=== PATIENT | male | born 1995 | race Caucasian/White ===

== ENCOUNTER 2021-01-13 09:59 | Emergency (ER) | payer BC, SELFPAY ==
[2021-01-13 11:14] VITALS: BP 138/98; PULSE 88; RESP 18; O2SAT 98; BMI 23.7
[2021-01-13] MEDS: Ondansetron ODT 4 MG TAB.RAPDIS TRANSLINGU (11:18)
[2021-01-13 11:44] LABS: MANUAL DIFF FLAG NO
[2021-01-13 11:46] LABS: Basophils Percent Auto 0.3 % (0-2); Hematocrit 46.7 % (42.0-52.0); Hemoglobin 16.6 g/dl (14.0-18.0); Imm Gran Abs Auto 0.04 X10*3/uL (0.00-0.03); Imm Gran Pct Auto 0.3 % (0.0-0.4); Lymphocytes Absolute Auto 0.7 X10*3/uL (1.2-4.9); Lymphocytes Percent Auto 5.8 % (20-40); Mean Corpuscular HGB Conc 35.5 g/dl (31.0-36.0); Mean Corpuscular Volume 87.1 fL (80.0-98.0); Mean Platelet Volume 9.6 fL (9.4-12.4); Monocytes Absolute Auto 0.7 X10*3/uL (0.1-1.2); Monocytes Percent Auto 5.8 % (2-11); Neutrophils Absolute Auto 10.9 x10*3/uL (2.0-8.3); Neutrophils Percent Auto 87.8 % (45-73); Platelet Count 266 X10*3/uL (160-400); Red Blood Count 5.36 X10*6/uL (4.60-5.80); Red Cell Distribution Width 12.5 % (11.0-16.0); White Blood Count 12.4 X10*3/uL (4.8-10.8)
[2021-01-13 12:03] LABS: Anion Gap 21 (12-20); Blood Urea Nitrogen 12 mg/dL (9-16); Calcium 10.1 mg/dL (8.4-10.2); Carbon Dioxide 21 mmol/L (22-29); Chloride 104 mmol/L (96-108); Creatinine Clr Calc Pharmacy 101.8; Estimated Glomerular Filt Rate > 60; Glucose Random 87 mg/dL (60-115); Potassium 4.6 mmol/L (3.3-5.1); Sodium 141 mmol/L (135-145)
--- NOTE | 2021-01-13 12:44 | ED.NAVMDI ---
HPI - Nausea/Vomiting/Diarrhea General Chief complaint: Nausea/Vomiting/Diarrhea Stated complaint: dehydration vomiting Time Seen by Provider: 01/13/21 12:44 Source: patient Mode of arrival: ambulatory Limitations: no limitations History of Present Illness HPI Narrative: This is a 25-year-old male no known medical history presenting to the emergency department with complaints of nausea, vomiting and abdominal discomfort secondary to the vomiting X1 day. Patient tells me that he went on a drinking binge last night, he is unsure how much he drinks however he states that he drink a lot of blood light, and anuradha bombs. He tells me that he does not usually drink however he decided to go out after work yesterday. He tells me he is dehydrated and he has not been able to keep anything down. He tells me he is vomiting bile, and has not sought vomiting since he woke up this morning, unsure of how many times he has vomited. He denies chest pain, shortness of breath, fevers, chills, diarrhea, constipation, weakness, headache, vision changes. MD elicited complaint: nausea, vomiting and abdominal pain (diffuse) Onset (ago): day(s) (1) Description of vomiting: bilious Associated nausea: Yes Associated abdominal pain: Yes Location of pain: diffuse Pain consistency: constant Severity: moderate Quality: cramping Exacerbating factors: none Relieving factors: none Associated symptoms: denies other symptoms Related Data Previous Rx's Medication Instructions Recorded ondansetron 4 mg disintegrating 4 mg PO ONCE PRN #10 tab 01/13/21 tablet Allergies Allergy/AdvReac Type Severity Reaction Status Date / Time No Known Allergies Allergy Unverified 10/29/19 17:12 Review of Systems Review of Systems: Constitutional : No Weight loss, No Fever, No Chills, No Fatigue, No Malaise ENT/Mouth : No sore throat, No Rhinorrhea Eyes: No Eye Pain, No Swelling, No Redness Cardiovascular : No Chest Pain, No SOB, No Dyspnea on Exertion, No Orthopnea, No Edema, No Palpitations Respiratory : No Cough, No Sputum, No Wheezing Gastrointestinal : + Nausea, + Vomiting, No Diarrhea, No Constipation, + abdominal Pain, No Hematochezia, No Melena Genitourinary : No Dysuria, No Urinary Frequency, No Hematuria, Musculoskeletal : No joint pain, No Myalgias, No Joint Swelling Skin : No Skin Lesions, No rash Neuro : No Weakness, No Numbness, No Dizziness, No Headache Psych : No Anxiety/Panic, No Depression All other systems reviewed and are negative Gastrointestinal: Gastrointestinal: Reports nausea PMFSH Past Medical History Attestation statement: The following information was validated with the patient. Source: old records reviewed and nursing notes reviewed Social History Social History Alcohol intake: current Alcohol type: beer Patient Tobacco Use Status: Current someday Tobacco user Use of substances other than those prescribed or required for medical reasons: No Advance Directives: No Advance Directives Information Provided: No Physical Exam Vital Signs: Vital Signs: Last Vital Signs Pulse 88 01/13/21 11:14 Resp 18 01/13/21 11:14 BP 138/98 H 01/13/21 11:14 Pulse Ox 98 01/13/21 11:14 BMI result Body Mass Index 23.7 VSS Appearance: Alert.? Oriented X3.? No acute distress.? Head: Normocephalic, atraumatic, no step-offs or deformities Eyes: Pupils equal, round and reactive to light.? ENT: Pharynx normal.?+ Dry mucus membranes Neck: Normal inspection.? Neck supple.? CVS: Normal heart rate and rhythm.? Pulses normal.? Respiratory: No respiratory distress.? Breath sounds normal.? Abdomen: Soft and nontender.? Skin: Skin warm and dry.? Normal skin color.? Normal skin turgor.? Extremities: No lower extremity edema.? No calf ttp. 5/5 strength to bilateral upper and lower extremities Back: No midline tenderness, no C-spine tenderness, full range of motion, no CVA tenderness bilaterally Neuro: Oriented X 3.? No motor deficit.? No sensory deficit. Course Reevaluation(s) Reevaluation #1: Patient's laboratory studies show slight leukocytosis reactive due to vomiting, low concern for infection. No acute electrolyte abnormalities. Bilirubin is noted to be slightly elevated, likely secondary to patient's drinking. Time: 12:00 Reevaluation #2: I spoke to patient about his laboratory studies, and mention to him that his bilirubin was elevated, he tells me that is been elevated in the past, may have done imaging, so for this reason he does not feel as though imaging is necessary. I agree with him I do not feel as though imaging is necessary at this time. Patient is likely vomiting and nauseous secondary to alcohol use. He feels much better after fluids, Reglan and Zofran. He will be discharged home with p.rcaryl Zofran. Patient is safe for discharge home with PCP follow-up. Time: 14:07 MDM - Nausea/Vomiting/Diarrhea MDM Narrative Medical decision making narrative: 1250 25-year-old male no known medical history presents to the emergency department with complaints of nausea, vomiting and abdominal pain secondary to vomiting status post a night of heavy drinking last night. Patient tells me he was drinking beer, and anuradha bombs he doesent know how much he drank. Upon physical examination patient appears well, vital signs are stable. Lungs are clear. Regular rate and rhythm. Abdomen soft nontender nondistended. Patient is noted to have dry mucous membranes. No focal neuro deficits. Plan at this time is to obtain basic labs, administer fluids, Reglan, Zofran. Medical Records Attestation: I reviewed the patient's medical records. Lab Data Attestation: I reviewed the patient's lab results. Result diagrams: 01/13/21 11:39 12 11:39 Labs: Lab Results 01/13/21 01/13/21 Range/Units 11:39 11:39 WBC 12.4 H (4.8-10.8) X10*3/uL RBC 5.36 (4.60-5.80) X10*6/uL Hgb 16.6 (14.0-18.0) g/dl Hct 46.7 (42.0-52.0) % MCV 87.1 (80.0-98.0) fL MCH 31.0 (27.0-33.0) pg MCHC 35.5 (31.0-36.0) g/dl RDW 12.5 (11.0-16.0) % Plt Count 266 (160-400) X10*3/uL MPV 9.6 (9.4-12.4) fL Immature Gran % (Auto) 0.3 (0.0-0.4) % Neut % (Auto) 87.8 H (45-73) % Lymph % (Auto) 5.8 L (20-40) % [place] % (Auto) 5.8 (2-11) % Eos % (Auto) 0.0 (0-4) % Baso % (Auto) 0.3 (0-2) % Lymph # (Auto) 0.7 L (1.2-4.9) X10*3/uL [place] # (Auto) 0.7 (0.1-1.2) X10*3/uL Eos # (Auto) 0.0 (0.0-0.4) X10*3/uL Baso # (Auto) 0.0 (0.0-0.2) X10*3/uL Abs Immat Gran (auto) 0.04 H (0.00-0.03) X10*3/uL Absolute Neuts (auto) 10.9 H (2.0-8.3) x10*3/uL Absolute Nucleated RBC 0.000 (0.0-0.012) X10*3/uL Nucleated RBC % (auto) 0.0 (0.0-0.2) /100WBC Sodium 141 (135-145) mmol/L Potassium 4.6 (3.3-5.1) mmol/L Chloride 104 (96-108) mmol/L Carbon Dioxide 21 L (22-29) mmol/L Anion Gap 21 H (12-20) BUN 12 (9-16) mg/dL Creatinine 1.16 (0.5-1.4) mg/dL Estim Creat Clear Calc 101.8 Estimated GFR > 60 Random Glucose 87 (60-115) mg/dL Calcium 10.1 (8.4-10.2) mg/dL Total Bilirubin 1.6 H (0.0-1.0) mg/dL Direct Bilirubin 0.7 H (0.0-0.5) mg/dL AST 22 (5-37) U/L ALT 21 (0-40) U/L Alkaline Phosphatase 59 (39-117) U/L Total Protein 7.9 (6.5-8.0) g/dL Albumin 5.1 H (3.5-5.0) g/dL Lipase 49 (8-78) U/L Critical Care Time Critical Care Time Critical Care Time: No Discharge Plan Discharge Clinical Impression: Dehydration, Nausea & vomiting Patient Disposition: Home, Self-Care Instructions: Dehydration (ED), Acute Nausea and Vomiting (ED) Additional Instructions: Take your medications as prescribed. Drink plenty of fluids Follow-up with your primary care provider this week. Return to the emergency department with new or worsening symptoms. In case of emergency call 911 Prescriptions: New ondansetron 4 mg tablet,disintegrating 4 mg PO ONCE PRN (Reason: nausea and vomiting) Qty: 10 RF: 0 Referrals: Physician,Unknown J [Primary Care Provider] - 2 days Stand Alone Forms: Work/School Release
[2021-01-13 13:05] LABS: Alanine Aminotransferase 21 U/L (0-40); Albumin Level 5.1 g/dL (3.5-5.0); Alkaline Phosphatase 59 U/L (39-117); Aspartate Amino Transferase 22 U/L (5-37); Bilirubin Direct 0.7 mg/dL (0.0-0.5); Bilirubin Total 1.6 mg/dL (0.0-1.0); Lipase 49 U/L (8-78); Total Protein 7.9 g/dL (6.5-8.0)
[2021-01-13] MEDS: 0.9 % Sodium Chloride 1,000 ML 999 ML IV (13:27)
[2021-01-13] MEDS: diphenhydrAMINE HCL 50 MG/ML VIAL 25 MG IVPUSH (13:28)
[2021-01-13] MEDS: Metoclopramide HCl 10 MG/2 ML VIAL IVPUSH (13:28)
[2021-01-13 14:15] VITALS: BP 136/77; PULSE 69; RESP 18; TEMP 36.9; O2SAT 99
== END 2021-01-13 14:38 | disposition home or self-care (01) ==
PROVIDERS: Physician Assistant; Emergency Provider Emergency Medicine
DX: E86.0 Dehydration (principal); R11.2 Nausea with vomiting, unspecified
CPT/HCPCS: 36415; 80048; 80076; 83690; 85025; 96361; 96374; 96375; 99284; J1200; J2765

== ENCOUNTER 2022-03-21 08:29 | Outpatient (REF) | payer BC, SELFPAY ==
--- NOTE | ~2022-03-21 | XR_ITS ---
EXAMINATION: XR ABDOMEN KUB CLINICAL INDICATION: Unspecified abdominal pain. COMPARISON: None TECHNIQUE: AP view of the abdomen. FINDINGS: The bowel gas pattern is normal with no evidence of ileus or obstruction. No unusual soft tissue calcifications are noted. The bones are unremarkable. XR/XR KUB IMPRESSION: Nonobstructive bowel gas pattern.
== END 2022-03-21 08:30 | disposition home or self-care (01) ==
LOC: HO.XRAY 08:29
PROVIDERS: Visit Provider Family Medicine
DX: R10.9 Unspecified abdominal pain (principal); R11.2 Nausea with vomiting, unspecified
CPT/HCPCS: 74018

== ENCOUNTER 2022-03-27 17:41 | Emergency (ER) | payer BC, SELFPAY ==
--- NOTE | ~2022-03-27 | CT_ITS ---
EXAMINATION: CT ABDOMEN AND PELVIS WITH CONTRAST CLINICAL INFORMATION: diarrhea, abd pain COMPARISON: None. TECHNIQUE: Multidetector volumetric imaging was performed from the superior aspect of the liver through the pubic symphysis following administration of 85 mL Omnipaque 300 intravenous contrast. Sagittal and coronal reformatted images were obtained on the technologist workstation.. This CT examination was performed using dose optimization techniques as appropriate, variously including the following: *Automated exposure control *Adjustment of mA and/or kV according to patient size (this includes techniques or standardized protocols for targeted exams where dose is matched to indication/reason for exam; i.e. extremities or head) *Use of iterative reconstruction technique DLP: 443 mGy-cm FINDINGS: LUNG BASES: The visualized lung bases are unremarkable. LIVER, GALLBLADDER, AND BILIARY TREE: The liver is normal in size, shape, and attenuation. No focal hepatic lesion or biliary ductal dilatation is present. The gallbladder is unremarkable with no evidence of radiopaque gallstones, gallbladder wall thickening, or obvious pericholecystic inflammatory changes. PANCREAS: Unremarkable. SPLEEN: Unremarkable. ADRENAL GLANDS: Unremarkable. KIDNEYS AND URETERS: The kidneys are normal in size, shape, and attenuation. No hydronephrosis, hydroureter, or calculi seen. No perinephric stranding. BLADDER: Unremarkable. GASTROINTESTINAL TRACT: Fluid and air seen throughout colon to the rectum. There is also fluid seen within the small bowel loops. I do not appreciate any focal obstruction or transition point. No pericolonic or perienteric inflammatory changes. The appendix is not able to be defined and may be surgically absent although could be difficult to separate from adjacent bowel loops due to the lack of significant intra-abdominal fat. ABDOMINAL WALL: No significant hernia is appreciated. LYMPHOVASCULAR STRUCTURES: No lymphadenopathy. The aorta is unremarkable. PELVIC VISCERA: Unremarkable. OSSEOUS STRUCTURES: Unremarkable. CT/CT abdomen pelvis w IV con IMPRESSION: Fluid and air seen throughout the colon to the rectum. There is also fluid seen within the small bowel loops. I do not appreciate any focal obstruction or transition point. No pericolonic inflammatory changes. No free air or free fluid. The appendix is not able to be defined and may be surgically absent although could be difficult to separate from adjacent bowel loops due to the lack of significant intra-abdominal fat.
[2022-03-27 18:14] VITALS: BP 143/81; PULSE 84; RESP 16; TEMP 37.2; O2SAT 100; BMI 25.1
--- NOTE | 2022-03-27 18:14 | ED_ITS ---
HPI - Nausea/Vomiting/Diarrhea General Chief complaint: Nausea/Vomiting/Diarrhea <Elena Joyner CNP - Last Filed: 03/27/22 19:56> Stated complaint: vomiting <Elena Joyner CNP - Last Filed: 03/27/22 19:56> Time Seen by Provider: 03/27/22 22:19 <Elena Joyner CNP - Last Filed: 03/27/22 19:56> Source: patient <ARGENTINA Portillo - Last Filed: 03/28/22 00:32> Mode of arrival: ambulatory <ARGENTINA Portillo Last Filed: 03/28/22 00:32> Limitations: no limitations <ARGENTINA Portillo Last Filed: 03/28/22 00:32> History of Present Illness HPI Narrative: This is a 26-year-old male presenting to the emergency department with complaints of nausea, vomiting, diffuse abdominal pain, diarrhea, body aches and pains, subjective fevers and chills x1 week not improving. Patient states he feels like his whole body is aching. He denies any sick contacts. He tells me he is a frequent marijuana smoker, he also reports that he uses chewing tobacco very frequently. Denies any drug use other than marijuana. Patient tells me he used to be heavy drinker however now only drinks occasionally. Patient denies chest pain, shortness of breath, headache, vision changes, dizziness. No recent antibiotic use <ARGENTINA Portillo Last Filed: 03/28/22 00:32> Related Data Home medications: Previous Rx's Medication Instructions Recorded ondansetron 4 mg disintegrating 4 mg PO ONCE PRN nausea and 01/13/21 tablet vomiting #10 tabs omeprazole 40 mg capsule,delayed 40 mg PO DAILY 15 days #15 caps 03/20/22 release ondansetron 4 mg disintegrating 4 mg PO Q8H PRN nausea and 03/20/22 tablet vomiting 3 days #9 tabs sucralfate 1 gram tablet 1 g PO BID 5 days #10 tabs 03/20/22 diphenhydramine HCl 25 mg capsule 25 mg PO TID PRN nausea and 03/28/22 (Benadryl) vomiting #14 caps loperamide 2 mg capsule 2 mg PO Q6H PRN loose stool #30 03/28/22 (Anti-Diarrheal (loperamide)) caps metoclopramide HCl 10 mg tablet 10 mg PO Q6H PRN nausea and 03/28/22 (Reglan) vomiting #14 tabs <Elena Joyner CNP - Last Filed: 03/27/22 19:56> Allergies/Adverse reactions: Allergies Allergy/AdvReac Type Severity Reaction Status Date / Time No Known Allergies Allergy Unverified 03/20/22 09:18 <Elena Joyner CNP - Last Filed: 03/27/22 19:56> Review of Systems Review of Systems: Constitutional : No Weight loss, No Fever, No Chills, + Fatigue, + Malaise ENT/Mouth : No sore throat, No Rhinorrhea Eyes: No Eye Pain, No Swelling, No Redness Cardiovascular : No Chest Pain, No SOB, No Dyspnea on Exertion, No Orthopnea, No Edema, No Palpitations Respiratory : No Cough, No Sputum, No Wheezing Gastrointestinal : + Nausea, + Vomiting, + Diarrhea, No Constipation, + abdominal Pain, No Hematochezia, No Melena Genitourinary : No Dysuria, No Urinary Frequency, No Hematuria, Musculoskeletal : No joint pain, + Myalgias, No Joint Swelling Skin : No Skin Lesions, No rash Neuro : No Weakness, No Numbness, No Dizziness, No Headache Psych : No Anxiety/Panic, No Depression All other systems reviewed and are negative <ARGENTINA Portillo - Last Filed: 03/28/22 00:32> Yes all other systems are reviewed and are negative <ARGENTINA Portillo Last Filed: 03/28/22 00:32> FORMERLY [facility] Past Medical History Attestation statement: The following information was validated with the patient. <ARGENTINA Portillo Last Filed: 03/28/22 00:32> Source: old records reviewed and nursing notes reviewed <ARGENTINA Portillo ast Filed: 03/28/22 00:32> Social History Social History: Social History Alcohol intake: current Alcohol type: beer Patient Tobacco Use Status: Current someday Tobacco user Advance Directives: No Advance Directives Information Provided: No <Elena JoynerMELLY - Last Filed: 03/27/22 19:56> Physical Exam Vital Signs: Vital Signs: Last Vital Signs Temp 98.1 F 03/28/22 00:04 Pulse 67 03/28/22 00:04 Resp 16 03/28/22 00:04 BP 133/62 03/28/22 00:04 Pulse Ox 95 03/28/22 00:04 O2 Del Method 03/28/22 00:04 BMI result Body Mass Index 25.1 <Elena JoynerMELLY - Last Filed: 03/27/22 19:56> Vital Signs: Last Vital Signs Temp 98.1 F 03/28/22 00:04 Pulse 67 03/28/22 00:04 Resp 16 03/28/22 00:04 BP 133/62 03/28/22 00:04 Pulse Ox 95 03/28/22 00:04 O2 Del Method 03/28/22 00:04 BMI result Body Mass Index 25.1 vss <ARGENTINA Portillo - Last Filed: 03/28/22 00:32> Appearance: Alert.? Oriented X3.? No acute distress.? Head: Normocephalic, atraumatic, no step-offs or deformities Eyes: Pupils equal, round and reactive to light.? ENT: Pharynx normal.? Neck: Normal inspection.? Neck supple.? CVS: Normal heart rate and rhythm.? Pulses normal.? Respiratory: No respiratory distress.? Breath sounds normal.? Abdomen: Soft and mild diffuse tenderness throughout however no point tenderness. Normoactive bowel sounds.? Skin: Skin warm and dry.? Normal skin color.? Normal skin turgor.? Extremities: No lower extremity edema.? No calf ttp. 5/5 strength to bilateral upper and lower extremities Back: No midline tenderness, no C-spine tenderness, full range of motion, no CVA tenderness bilaterally Neuro: Oriented X 3.? No motor deficit.? No sensory deficit. CN 2-12 intact <ARGENTINA Portillo - Last Filed: 03/28/22 00:32> Course Course Course Narrative: This is an RME: Additional HPI, ROS, PE not included below will be deferred to primary provider. Patient is a 26-year-old male presents emergency department for evaluation NVD and pain. Reports last week 03/18 - 03/21 with nausea and vomiting, ABD pain, no diarrhea. Went to urgent care, reports having an x- ray done of the abdomen, did not receive any results. Reports symptoms returned today with nausea, vomiting x7 large volume emesis initially, now small episodes of bile. Diffuse ABD pain. Tactile fever and chills. Reports that Zofran, and antacid medications have not improved symptoms. Denies hematochezia, melena, bloody emesis. Has had similar episodes to this over the past couple of years, but have never found a cause. He is questioning whether this may be related to nicotine toxicity as he does a lot of dip . PE: diffuse ABD tenderness upon examination Had KUB 03/21/22 without obstructive bowel gas pattern. Plan: labs, viral testing, urinalysis. placed back in waiting room pending bed availability <Elena Joyner CNP - Last Filed: 03/27/22 19:56> Reevaluation(s) Reevaluation #1: Patient with leukocytosis likely secondary to acute nausea and vomiting. Chemistry with no acute electrolyte abnormalities requiring intervention. Patient with chronically elevated total bilirubin, bilirubin today 1.9, on 01/13/2021 it was 1.6 . UA negative for infection. CT of the abdomen and pelvis revealing fluid and air seen throughout the colon to the rectum. There is also fluid seen within the small bowel loops. Radiology is not appreciating any focal obstruction or transition point. No pericolonic inflammatory changes. No free air free fluid. The appendix is not visualized, patient still has his appendix however upon re-evaluation of patient his abdomen is nontender, there is no point tenderness right lower quadrant negative Rovsing, McBurney's point. Low suspicion for acute appendicitis. Patient states he is feeling significantly better has not vomited since he has been here after Reglan and Benadryl. Tolerating PO. Will discharge patient home on Reglan and Benadryl, advised him to take them both together not to take Reglan alone as this can cause involuntary movements. Educated patient on diagnosis and treatment plan, answered all question, patient verbalizes understanding. At this time patient will be discharged home, advised to return with new or worsening symptoms. Educated on worrisome signs and symptoms and when to return. At this time I feel comfortable discharge home. <ARGENTINA Portillo - Last Filed: 03/28/22 00:32> Time: 00:23 <ARGENTINA Portillo - Last Filed: 03/28/22 00:32> Reevaluation #2: Prior to patient discharge I did discuss this case with my attending doctors Piper michelle w/ [facility]. Suspected cyclic vomiting syndrome. <ARGENTINA Portillo - Last Filed: 03/28/22 00:32> Medications Administered Discontinued Medications Generic Name Dose Route Start Last Admin Trade Name Freq PRN Reason Stop Dose Admin Diphenhydramine HCl 25 mg 03/27/22 22:59 03/27/22 23:25 Diphenhydramine Hcl 50 Mg/Ml Vial IVPUSH 03/27/22 23:00 25 mg ONCE ONE Administration Iohexol 100 ml 03/27/22 22:33 03/27/22 22:35 Iohexol 350 Mg/Ml 100 Ml Infus..Btl IV 03/27/22 22:34 85 ml ONCE ONE Administration Ketorolac Tromethamine 30 mg 03/27/22 22:59 03/27/22 23:26 Ketorolac Tromethamine 15 Mg/Ml Vial IVPUSH 03/27/22 23:00 30 mg ONCE ONE Administration Metoclopramide HCl 10 mg 03/27/22 22:59 03/27/22 23:25 Metoclopramide Hcl 10 Mg/2 Ml Vial IVPUSH 03/27/22 23:00 10 mg ONCE ONE Administration <Elena Jonyer CNP - Last Filed: 03/27/22 19:56> Medications Administered Discontinued Medications Generic Name Dose Route Start Last Admin Trade Name Freq PRN Reason Stop Dose Admin Diphenhydramine HCl 25 mg 03/27/22 22:59 03/27/22 23:25 Diphenhydramine Hcl 50 Mg/Ml Vial IVPUSH 03/27/22 23:00 25 mg ONCE ONE Administration Iohexol 100 ml 03/27/22 22:33 03/27/22 22:35 Iohexol 350 Mg/Ml 100 Ml Infus..Btl IV 02/14/23 22:34 85 ml ONCE ONE Administration Ketorolac Tromethamine 30 mg 03/27/22 22:59 03/27/22 23:26 Ketorolac Tromethamine 15 Mg/Ml Vial IVPUSH 03/27/22 23:00 30 mg ONCE ONE Administration Metoclopramide HCl 10 mg 03/27/22 22:59 03/27/22 23:25 Metoclopramide Hcl 10 Mg/2 Ml Vial IVPUSH 03/27/22 23:00 10 mg ONCE ONE Administration <ARGENTINA Portillo Last Filed: 03/28/22 00:32> Medical Decision Making Medical Decision Making [facility] Narrative: 18-year-old male presents with nausea, vomiting, diarrhea, abdominal pain, fatigue, malaise, myalgias times a week. Physical examination initially with diffusely tender abdomen. Normoactive bowel sounds. Regular rate and rhythm. Lungs clear. Negative CVA tenderness. Neuro nonfocal. Likely viral infection versus gastroenteritis versus influenza versus COVID. Unlikely acute abdomen, obstruction, C diff, bacterial diarrhea. Other differ ential includes cyclic vomiting syndrome Plan at this time labs, imaging, urine. Viral testing also be done. <ARGENTINA Portillo - Last Filed: 03/28/22 00:32> Differential Diagnosis Differential Diagnoses: The differential diagnosis associated with the presentation includes <ARGENTINA Ramirez Last Filed: 03/28/22 00:32> Likely viral infection versus gastroenteritis versus influenza versus COVID. Unlikely acute abdomen, obstruction, C diff, bacterial diarrhea. Other differential includes cyclic vomiting syndrome <ARGENTINA Portillo Last Filed: 03/28/22 00:32> Admission/Observation Consideration of admission/observation: Escalation of care including admission/observation considered <ARGENTINA Portillo Last Filed: 03/28/22 00:32> Unlikely <ARGENTINA Portillo Last Filed: 03/28/22 00:32> Consult Healthcare Provider Management of the patient was discussed with: Woodworker Helper (My attending) <ARGENTINA Portillo Last Filed: 03/28/22 00:32> Lab Data [facility] Lab Attestation statement: I reviewed the patient's lab results. <ARGENTINA Portillo Last Filed: 03/28/22 00:32> Result Diagrams: 03/27/22 21:25 03/27/22 21:25 <Elena Joyner CNP - Last Filed: 03/27/22 19:56> Labs: Lab Results 03/27/22 03/27/22 03/27/22 Range/Units 21:25 21:25 21:25 WBC 22.1 H (4.8-10.8) X10*3/uL RBC 5.10 (4.60-5.80) X10*6/uL Hgb 15.6 (14.0-18.0) g/dl Hct 42.6 (42.0-52.0) % MCV 83.5 (80.0-98.0) fL MCH 30.6 (27.0-33.0) pg MCHC 36.6 H (31.0-36.0) g/dl RDW 12.1 (11.0-16.0) % Plt Count 326 (160-400) X10*3/uL MPV 9.7 (9.4-12.4) fL Immature Gran % (Auto) 0.5 H (0.0-0.4) % Neut % (Auto) 93.8 H (45-73) % Lymph % (Auto) 2.8 L (20-40) % [place] % (Auto) 2.4 (2-11) % Eos % (Auto) 0.3 (0-4) % Baso % (Auto) 0.2 (0-2) % Lymph # (Auto) 0.6 L (1.2-4.9) X10*3/uL [place] # (Auto) 0.5 (0.1-1.2) X10*3/uL Eos # (Auto) 0.1 (0.0-0.4) X10*3/uL Baso # (Auto) 0.0 (0.0-0.2) X10*3/uL Abs Immat Gran (auto) 0.11 H (0.00-0.03) X10*3/uL Absolute Neuts (auto) 20.7 H (2.0-8.3) x10*3/uL Absolute Nucleated RBC 0.000 (0.0-0.012) X10*3/uL Nucleated RBC % (auto) 0.0 (0.0-0.2) /100WBC Smear Tech's Comments VERIFIED Sodium 141 (135-145) mmol/L Potassium 3.6 D (3.3-5.1) mmol/L Chloride 106 (96-108) mmol/L Carbon Dioxide 21 L (22-29) mmol/L Anion Gap 18 (12-20) BUN 14 (9-16) mg/dL Creatinine 0.95 (0.5-1.4) mg/dL Estim Creat Clear Calc 119.5 Estimated GFR > 60 Random Glucose 109 (60-115) mg/dL Calcium 9.3 D (8.4-10.2) mg/dL Total Bilirubin 1.9 H (0.0-1.0) mg/dL AST 16 (5-37) U/L ALT 16 (0-40) U/L Alkaline Phosphatase 50 (39-117) U/L Total Protein 7.0 (6.5-8.0) g/dL Albumin 4.7 (3.5-5.0) g/dL Lipase 22 (8-78) U/L Urine Color Urine Appearance Urine pH (5.0-9.0) Ur Specific [place] (1.005-1.025) Urine Protein (Neg-Trace) mg/dL Urine Glucose (UA) (Negative) mg/dL Urine Ketones (Negative) mg/dL Urine Blood (Negative) Urine Nitrite (Negative) Ur Leukocyte Esterase (Negative) COVID-19 (AMARI) (Negative) COVID-19 Clin Com Influenza Type A (ELVIS) Negative (Negative) Influenza Type B (ELVIS) Negative (Negative) Influenza A & B Note See Note 03/27/22 03/28/22 Range/Units 21:25 00:06 WBC (4.8-10.8) X10*3/uL RBC (4.60-5.80) X10*6/uL Hgb (14.0-18.0) g/dl Hct (42.0-52.0) % MCV (80.0-98.0) fL MCH (27.0-33.0) pg MCHC (31.0-36.0) g/dl RDW (11.0-16.0) % Plt Count (160-400) X10*3/uL MPV (9.4-12.4) fL Immature Gran % (Auto) (0.0-0.4) % Neut % (Auto) (45-73) % Lymph % (Auto) (20-40) % [place] % (Auto) (2-11) % Eos % (Auto) (0-4) % Baso % (Auto) (0-2) % Lymph # (Auto) (1.2-4.9) X10*3/uL [place] # (Auto) (0.1-1.2) X10*3/uL Eos # (Auto) (0.0-0.4) X10*3/uL Baso # (Auto) (0.0-0.2) X10*3/uL Abs Immat Gran (auto) (0.00-0.03) X10*3/uL Absolute Neuts (auto) (2.0-8.3) x10*3/uL Absolute Nucleated RBC (0.0-0.012) X10*3/uL Nucleated RBC % (auto) (0.0-0.2) /100WBC Smear Tech's Comments Sodium (135-145) mmol/L Potassium (3.3-5.1) mmol/L Chloride (96-108) mmol/L Carbon Dioxide (22-29) mmol/L Anion Gap (12-20) BUN (9-16) mg/dL Creatinine (0.5-1.4) mg/dL Estim Creat Clear Calc Estimated GFR Random Glucose (60-115) mg/dL Calcium (8.4-10.2) mg/dL Total Bilirubin (0.0-1.0) mg/dL AST (5-37) U/L ALT (0-40) U/L Alkaline Phosphatase (39-117) U/L Total Protein (6.5-8.0) g/dL Albumin (3.5-5.0) g/dL Lipase (8-78) U/L Urine Color Yellow Urine Appearance Clear Urine pH 6.0 (5.0-9.0) Ur Specific [place] >= 1.030 H (1.005-1.025) Urine Protein Trace (Neg-Trace) mg/dL Urine Glucose (UA) Negative (Negative) mg/dL Urine Ketones 15 (Negative) mg/dL Urine Blood Negative (Negative) Urine Nitrite Negative (Negative) Ur Leukocyte Esterase Negative (Negative) COVID-19 (AMARI) Negative (Negative) COVID-19 Clin Com See Note Influenza Type A (ELVIS) (Negative) Influenza Type B (ELVIS) (Negative) Influenza A & B Note <Elena Joyner, METER MAINTENANCE PERSON - Last Filed: 03/27/22 19:56> Lab Results 03/27/22 03/27/22 03/27/22 Range/Units 21:25 21:25 21:25 WBC 22.1 H (4.8-10.8) X10*3/uL RBC 5.10 (4.60-5.80) X10*6/uL Hgb 15.6 (14.0-18.0) g/dl Hct 42.6 (42.0-52.0) % MCV 83.5 (80.0-98.0) fL MCH 30.6 (27.0-33.0) pg MCHC 36.6 H (31.0-36.0) g/dl RDW 12.1 (11.0-16.0) % Plt Count 326 (160-400) X10*3/uL MPV 9.7 (9.4-12.4) fL Immature Gran % (Auto) 0.5 H (0.0-0.4) % Neut % (Auto) 93.8 H (45-73) % Lymph % (Auto) 2.8 L (20-40) % [place] % (Auto) 2.4 (2-11) % Eos % (Auto) 0.3 (0-4) % Baso % (Auto) 0.2 (0-2) % Lymph # (Auto) 0.6 L (1.2-4.9) X10*3/uL [place] # (Auto) 0.5 (0.1-1.2) X10*3/uL Eos # (Auto) 0.1 (0.0-0.4) X10*3/uL Baso # (Auto) 0.0 (0.0-0.2) X10*3/uL Abs Immat Gran (auto) 0.11 H (0.00-0.03) X10*3/uL Absolute Neuts (auto) 20.7 H (2.0-8.3) x10*3/uL Absolute Nucleated RBC 0.000 (0.0-0.012) X10*3/uL Nucleated RBC % (auto) 0.0 (0.0-0.2) /100WBC Smear Tech's Comments VERIFIED Sodium 141 (135-145) mmol/L Potassium 3.6 D (3.3-5.1) mmol/L Chloride 106 (96-108) mmol/L Carbon Dioxide 21 L (22-29) mmol/L Anion Gap 18 (12-20) BUN 14 (9-16) mg/dL Creatinine 0.95 (0.5-1.4) mg/dL Estim Creat Clear Calc 119.5 Estimated GFR > 60 Random Glucose 109 (60-115) mg/dL Calcium 9.3 D (8.4-10.2) mg/dL Total Bilirubin 1.9 H (0.0-1.0) mg/dL AST 16 (5-37) U/L ALT 16 (0-40) U/L Alkaline Phosphatase 50 (39-117) U/L Total Protein 7.0 (6.5-8.0) g/dL Albumin 4.7 (3.5-5.0) g/dL Lipase 22 (8-78) U/L Urine Color Urine Appearance Urine pH (5.0-9.0) Ur Specific [place] (1.005-1.025) Urine Protein (Neg-Trace) mg/dL Urine Glucose (UA) (Negative) mg/dL Urine Ketones (Negative) mg/dL Urine Blood (Negative) Urine Nitrite (Negative) Ur Leukocyte Esterase (Negative) COVID-19 (AMARI) (Negative) COVID-19 Clin Com Influenza Type A (ELVIS) Negative (Negative) Influenza Type B (ELVIS) Negative (Negative) Influenza A & B Note See Note 03/27/22 03/28/22 Range/Units 21:25 00:06 WBC (4.8-10.8) X10*3/uL RBC (4.60-5.80) X10*6/uL Hgb (14.0-18.0) g/dl Hct (42.0-52.0) % MCV (80.0-98.0) fL MCH (27.0-33.0) pg MCHC (31.0-36.0) g/dl RDW (11.0-16.0) % Plt Count (160-400) X10*3/uL MPV (9.4-12.4) fL Immature Gran % (Auto) (0.0-0.4) % Neut % (Auto) (45-73) % Lymph % (Auto) (20-40) % [place] % (Auto) (2-11) % Eos % (Auto) (0-4) % Baso % (Auto) (0-2) % Lymph # (Auto) (1.2-4.9) X10*3/uL [place] # (Auto) (0.1-1.2) X10*3/uL Eos # (Auto) (0.0-0.4) X10*3/uL Baso # (Auto) (0.0-0.2) X10*3/uL Abs Immat Gran (auto) (0.00-0.03) X10*3/uL Absolute Neuts (auto) (2.0-8.3) x10*3/uL Absolute Nucleated RBC (0.0-0.012) X10*3/uL Nucleated RBC % (auto) (0.0-0.2) /100WBC Smear Tech's Comments Sodium (135-145) mmol/L Potassium (3.3-5.1) mmol/L Chloride (96-108) mmol/L Carbon Dioxide (22-29) mmol/L Anion Gap (12-20) BUN (9-16) mg/dL Creatinine (0.5-1.4) mg/dL Estim Creat Clear Calc Estimated GFR Random Glucose (60-115) mg/dL Calcium (8.4-10.2) mg/dL Total Bilirubin (0.0-1.0) mg/dL AST (5-37) U/L ALT (0-40) U/L Alkaline Phosphatase (39-117) U/L Total Protein (6.5-8.0) g/dL Albumin (3.5-5.0) g/dL Lipase (8-78) U/L Urine Color Yellow Urine Appearance Clear Urine pH 6.0 (5.0-9.0) Ur Specific [place] >= 1.030 H (1.005-1.025) Urine Protein Trace (Neg-Trace) mg/dL Urine Glucose (UA) Negative (Negative) mg/dL Urine Ketones 15 (Negative) mg/dL Urine Blood Negative (Negative) Urine Nitrite Negative (Negative) Ur Leukocyte Esterase Negative (Negative) COVID-19 (AMARI) Negative (Negative) COVID-19 Clin Com See Note Influenza Type A (ELVIS) (Negative) Influenza Type B (ELVIS) (Negative) Influenza A & B Note <ARGENTINA Portillo - Last Filed: 03/28/22 00:32> Independent Interpretation I performed an independent interpretation of an: CT Scan (Fluid and air seen throughout the colon in the rectum. However no free air. No transition point. No signs of obstruction.) <ARGENTINA Portillo - Last Filed: 03/28/22 00:32> Radiology Impression Discussion of test interpretation with radiology: I have reviewed the radiologist's reading. <ARGENTINA Portillo - Last Filed: 03/28/22 00:32> Core Measures AMI core measures followed: Yes <ARGENTINA Portillo - Last Filed: 03/28/22 00:32> Measure exclusions: not indicated <ARGENTINA Portillo - Last Filed: 03/28/22 00:32> Critical Care Time Critical Care Time Critical Care Time: No <ARGENTINA Portillo - Last Filed: 03/28/22 00:32> Discharge Plan Discharge Clinical Impression: Nausea and vomiting, Abdominal pain, Cyclical vomiting, Diarrhea <Elena Joyner CNP - Last Filed: 03/27/22 19:56> Patient Disposition: Home, Self-Care <Elena Joyner CNP - Last Filed: 03/27/22 19:56> Instructions: Acute Nausea and Vomiting (ED), Acute Diarrhea (ED), Abdominal Pain (ED), Nutrition Tips for Relief of Diarrhea (ED) <Elena Joyner CNP - Last Filed: 03/27/22 19:56> Additional Instructions: Take your medications as prescribed. If you were prescribed antibiotics today, it is important that you take your medication to their entirety, do not skip any doses, do not finish them early. Follow-up with your primary care provider this week. Follow up with Gastroenterology. Return to the emergency department with new or worsening symptoms. Such as fevers, chills, chest pain, shortness of breath, nausea, vomiting, dizziness, headache, vision changes, lethargy In case of emergency call 911 Loperamide sent for diarrhea take as prescribed Reglan and Benadryl can be taken together for nausea and vomiting. Do not take Reglan alone as this can cause involuntary movements Return with new or worsening symptoms. <Elena Joyner CNP - Last Filed: 03/27/22 19:56> Prescriptions: New diphenhydramine HCl [Benadryl] 25 mg capsule 25 mg PO TID PRN (Reason: nausea and vomiting) Qty: 14 0RF metoclopramide HCl [Reglan] 10 mg tablet 10 mg PO Q6H PRN (Reason: nausea and vomiting) Qty: 14 0RF loperamide [Anti-Diarrheal (loperamide)] 2 mg capsule 2 mg PO Q6H PRN (Reason: loose stool) Qty: 30 0RF No Action ondansetron 4 mg tablet,disintegrating 4 mg PO ONCE PRN (Reason: nausea and vomiting) Qty: 10 0RF ondansetron 4 mg tablet,disintegrating 4 mg PO Q8H PRN (Reason: nausea and vomiting) 3 Days Qty: 9 0RF omeprazole 40 mg capsule,delayed release(DR/EC) 40 mg PO DAILY 15 Days Qty: 15 0RF sucralfate 1 gram tablet 1 g PO BID 5 Days Qty: 10 0RF <Elena Joyner CNP - Last Filed: 03/27/22 19:56> Referrals: [facility] Gastroenterology Services [Provider Group] - 1 week <Elena Joyner CNP - Last Filed: 03/27/22 19:56> Stand Alone Forms: Work/School Release <Elena Joyner CNP - Last Filed: 03/27/22 19:56> Interventions: ED Discharge Assessment Last Done: 03/28/22 00:43 <Elena Joyner CNP - Last Filed: 03/27/22 19:56> Discharge Date/Time: 03/28/22 00:43 <Elena Joyner CNP - Last Filed: 03/27/22 19:56>
[2022-03-27 21:31] LABS: Basophils Percent Auto 0.2 % (0-2); Eosinophils Absolute Auto 0.1 X10*3/uL (0.0-0.4); Eosinophils Percent Auto 0.3 % (0-4); Hematocrit 42.6 % (42.0-52.0); Hemoglobin 15.6 g/dl (14.0-18.0); Imm Gran Abs Auto 0.11 X10*3/uL (0.00-0.03); Imm Gran Pct Auto 0.5 % (0.0-0.4); Lymphocytes Absolute Auto 0.6 X10*3/uL (1.2-4.9); Lymphocytes Percent Auto 2.8 % (20-40); MANUAL DIFF FLAG SCAN; Mean Corpuscular HGB Conc 36.6 g/dl (31.0-36.0); Mean Corpuscular Hemoglobin 30.6 pg (27.0-33.0); Mean Corpuscular Volume 83.5 fL (80.0-98.0); Mean Platelet Volume 9.7 fL (9.4-12.4); Monocytes Absolute Auto 0.5 X10*3/uL (0.1-1.2); Monocytes Percent Auto 2.4 % (2-11); Neutrophils Absolute Auto 20.7 x10*3/uL (2.0-8.3); Neutrophils Percent Auto 93.8 % (45-73); Platelet Count 326 X10*3/uL (160-400); Red Cell Distribution Width 12.1 % (11.0-16.0); SCAN SMEAR FLAG 1; White Blood Count 22.1 X10*3/uL (4.8-10.8)
[2022-03-27 21:51] LABS: COVID-19 Test Negative (Negative); IDNOW Serial# 16C4AD1C
[2022-03-27 21:55] LABS: Alanine Aminotransferase 16 U/L (0-40); Albumin Level 4.7 g/dL (3.5-5.0); Alkaline Phosphatase 50 U/L (39-117); Anion Gap 18 (12-20); Aspartate Amino Transferase 16 U/L (5-37); Bilirubin Total 1.9 mg/dL (0.0-1.0); Blood Urea Nitrogen 14 mg/dL (9-16); Calcium 9.3 mg/dL (8.4-10.2); Carbon Dioxide 21 mmol/L (22-29); Chloride 106 mmol/L (96-108); Creatinine Clr Calc Pharmacy 119.5; Estimated Glomerular Filt Rate > 60; Glucose Random 109 mg/dL (60-115); Lipase 22 U/L (8-78); Potassium 3.6 mmol/L (3.3-5.1); Sodium 141 mmol/L (135-145)
[2022-03-27 22:23] LABS: IDNOW Serial# 6674DD1D; Influenza A Negative (Negative); Influenza B2 Negative (Negative)
[2022-03-27 22:29] LABS: SLIDE REVIEW VERIFIED
[2022-03-27] MEDS: iohexoL 350 MG/ML 100 ML INFUS..BTL IV (22:35)
[2022-03-27] MEDS: diphenhydrAMINE HCL 50 MG/ML VIAL 25 MG IVPUSH (23:25)
[2022-03-27] MEDS: Metoclopramide HCl 10 MG/2 ML VIAL IVPUSH (23:25)
[2022-03-27] MEDS: Ketorolac Tromethamine 15 MG/ML VIAL 30 MG IVPUSH (23:26)
[2022-03-28 00:04] VITALS: BP 133/62; PULSE 67; RESP 16; TEMP 36.7; O2SAT 95
[2022-03-28 00:18] LABS: Appearance Urine Clear; Color Urine Yellow; Glucose Urine UA Negative (Negative); Leukocyte Esterase Urine Negative (Negative); Nitrite Urine Negative (Negative); Specific Gravity - Urine >= 1.030 (1.005-1.025); Urine Blood Negative (Negative); Urine Ketones 15 mg/dL (Negative); Urine Protein Trace mg/dL (Neg-Trace)
== END 2022-03-28 00:43 | disposition home or self-care (01) ==
PROVIDERS: Nurse Practitioner Family; Emergency Provider Internal Medicine
DX: R11.2 Nausea with vomiting, unspecified (principal); R19.7 Diarrhea, unspecified; R10.9 Unspecified abdominal pain; Z20.822 Contact with and (suspected) exposure to COVID-19; Z20.828 Contact with and (suspected) exposure to other viral communicable diseases; Z79.899 Other long term (current) drug therapy
CPT/HCPCS: 74177; 80053; 81003; 83690; 85025; 87502; 87635; 96374; 96375; 99283; 99284; J1200; J1885; J2765; Q9967

== ENCOUNTER 2022-06-13 08:45 | Emergency (ER) | payer BC, SELFPAY ==
[2022-06-13 09:28] VITALS: BP 131/79; PULSE 53; RESP 18; TEMP 36.8; O2SAT 98; BMI 25.5
[2022-06-13 09:42] LABS: MANUAL DIFF FLAG NO
[2022-06-13 09:44] LABS: Basophils Percent Auto 0.3 % (0-2); Eosinophils Absolute Auto 0.1 X10*3/uL (0.0-0.4); Eosinophils Percent Auto 0.6 % (0-4); Hematocrit 45.3 % (42.0-52.0); Hemoglobin 15.9 g/dl (14.0-18.0); Imm Gran Abs Auto 0.03 X10*3/uL (0.00-0.03); Imm Gran Pct Auto 0.3 % (0.0-0.4); Lymphocytes Absolute Auto 1.6 X10*3/uL (1.2-4.9); Lymphocytes Percent Auto 13.8 % (20-40); Mean Corpuscular HGB Conc 35.1 g/dl (31.0-36.0); Mean Corpuscular Hemoglobin 30.3 pg (27.0-33.0); Mean Corpuscular Volume 86.3 fL (80.0-98.0); Mean Platelet Volume 10.1 fL (9.4-12.4); Monocytes Absolute Auto 0.4 X10*3/uL (0.1-1.2); Monocytes Percent Auto 3.8 % (2-11); Neutrophils Absolute Auto 9.3 x10*3/uL (2.0-8.3); Neutrophils Percent Auto 81.2 % (45-73); Platelet Count 276 X10*3/uL (160-400); Red Blood Count 5.25 X10*6/uL (4.60-5.80); Red Cell Distribution Width 12.4 % (11.0-16.0); White Blood Count 11.5 X10*3/uL (4.8-10.8)
--- NOTE | 2022-06-13 10:18 | ED_ITS ---
HPI - Nausea/Vomiting/Diarrhea General Chief complaint: Nausea/Vomiting/Diarrhea Stated complaint: vomiting Time Seen by Provider: 06/13/22 09:56 Source: patient Mode of arrival: ambulatory Limitations: no limitations History of Present Illness HPI Narrative: 26-year-old male here with complaints of vomiting since Saturday with generalized abdominal pain. Patient reports up to 20 episodes a day of vomiting which is nonbloody. Patient has had normal bowel movements but did have several episodes of diarrhea today. No fevers, urinary symptoms, chest pain. Patient reports he was seen here in March for similar symptoms and was thought to have cyclic vomiting syndrome. It was recommended that he stop smoking marijuana. Patient reports he stop smoking for 3 weeks but was continuing to have symptoms and so he resumes smoking. 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 He has Zofran at home which he has been taking with continued symptoms Associated nausea: Yes Related Data Previous Rx's Medication Instructions Recorded ondansetron 4 mg disintegrating 4 mg PO ONCE PRN nausea and 01/13/21 tablet vomiting #10 tabs omeprazole 40 mg capsule,delayed 40 mg PO DAILY 15 days #15 caps 03/20/22 release ondansetron 4 mg disintegrating 4 mg PO Q8H PRN nausea and 03/20/22 tablet vomiting 3 days #9 tabs sucralfate 1 gram tablet 1 g PO BID 5 days #10 tabs 03/20/22 diphenhydramine HCl 25 mg capsule 25 mg PO TID PRN nausea and 03/28/22 (Benadryl) vomiting #14 caps loperamide 2 mg capsule 2 mg PO Q6H PRN loose stool #30 03/28/22 (Anti-Diarrheal (loperamide)) caps metoclopramide HCl 10 mg tablet 10 mg PO Q6H PRN nausea and 03/28/22 (Reglan) vomiting #14 tabs promethazine 12.5 mg tablet 12.5 mg PO TID PRN nausea and 06/13/22 vomiting #10 tabs Allergies Allergy/AdvReac Type Severity Reaction Status Date / Time No Known Allergies Allergy Verified 06/13/22 09:28 Review of Systems Review of Systems: Yes all other systems are reviewed and are negative Constitutional: Constitutional: Reports no additional constitutional complaints, Denies body ache(s), Denies chills, Denies fever(s), Denies headache(s) and Denies weakness Eyes: Eyes: Reports no additional eye complaints and Denies change in vision ENT: Reports system reviewed and no additional complaints, except as documented, Denies dizziness, Denies headache(s), Denies nasal congestion, Denies nasal discharge and Denies neck pain Cardiovascular: Cardiovascular: Reports no additional cardiovascular complaints, Denies chest pain, Denies leg edema and Denies dyspnea Respiratory: Respiratory: Reports no additional respiratory complaints, Denies cough and Denies dyspnea Gastrointestinal: Gastrointestinal: Reports no additional gastrointestinal complaints, Reports abdominal pain, Reports diarrhea, Reports nausea and Reports vomiting Genitourinary: Genitourinary: Denies urinary incontinence Musculoskeletal: Musculoskeletal: Reports no additional musculoskeletal complaints, Denies back pain, Denies arthralgias, Denies joint swelling, Denies neck pain, Denies numbness and Denies tingling Integumentary/Breasts: Skin/Breast: Reports system reviewed and no additional complaints, except as docu and Denies rash Neurologic: Reports system reviewed and no additional complaints, except as documented, Denies Abnormal speech present, Denies dizziness, Denies headache(s), Denies numbness, Denies tingling and Denies weakness PMFSH Past Medical History Attestation statement: The following information was validated with the patient. Source: old records reviewed and nursing notes reviewed Social History Social History Alcohol intake: current Alcohol type: beer Patient Tobacco Use Status: Current someday Tobacco user Advance Directives: No Advance Directives Information Provided: No Physical Exam Vital Signs: Vital Signs: Last Vital Signs Temp 97.6 F 06/13/22 11:09 Pulse 63 06/13/22 11:09 Resp 19 06/13/22 11:09 BP 127/69 06/13/22 11:09 Pulse Ox 98 06/13/22 11:09 O2 Del Method Room Air 06/13/22 11:09 BMI result Body Mass Index 25.5 Const: General: cooperative, healthy appearing, comfortable and no acute distress Orientation/consciousness: patient oriented x3 Limitations: no limitations HEENT: Head: Yes normal to inspection Ears: hearing grossly normal bilaterally General nose exam: Normal external nose present Face and sinus: Yes normal facial exam Mouth: Normal oral and palatal mucosa present Throat: Yes posterior oropharynx normal Eyes: General: appearance normal, both eyes and all related structures Pupils: Equal, round and reactive pupils present Neck: Neck: Yes normal visual inspection Chest: Chest palpation & inspection: normal inspection of the chest Resp: Effort & Inspection: normal respiratory effort Auscultation: clear to auscultation bilaterally Cardio: Rate: regular rate Rhythm: regular rhythm Peripheral pulses: Peripheral pulses 2+ throughout GI: Inspection: Yes normal to inspection Palpation (GI): Soft to palpation and nontender Auscultation: normal bowel sounds Back/Spine/Pelvis: Thoracic/Lumbar Spine: thoracic and lumbar spine normal to inspection Skin: General skin exam: no rashes or lesions noted Neuro: General: patient oriented x3, no focal motor deficits and normal sensation to monofilament Cranial nerves: Yes Equal, round and reactive pupils present Cognition (Neuro): normal cognition Speech: No Abnormal speech present Gait exam (Neuro): Normal gait present Motor exam (neuro): 5/5 motor strength present throughout Extrem: General: Yes normal to inspection Course Course Course Narrative: Labs show very mildly elevated lipase. I spoke to the patient his pain is resolved. He is tolerating francisco haydee with no additional vomiting episodes. His repeat abdominal exam is benign. I did review the lab finding with the patient. He may have mild pancreatitis. I do not believe that he needs to CT. I also discussed was with the patient he is agreeable with this plan of care. He can return if he has any worsening pain, vomiting or fever. Patient is comfortable with this. At this point I do believe that he should follow up outpatient with GI due to multiple visits for same. He should follow a clear liquid diet for 24 hours. Will send him home with antiemetics. Reviewed worrisome signs and symptoms of when to return to the emergency room. Comfortable plan for discharge home. Medications Administered Discontinued Medications Generic Name Dose Route Start Last Admin Trade Name Freq PRN Reason Stop Dose Admin Diphenhydramine HCl 25 mg 06/13/22 10:14 06/13/22 10:26 Diphenhydramine Hcl 50 Mg/Ml Vial IVPUSH 06/13/22 10:15 25 mg ONCE ONE Administration Sodium Chloride 1,000 mls @ 999 mls/hr 06/13/22 10:15 06/13/22 12:04 Ns IV 06/13/22 11:15 Infused .Q1H1M ELIEZER Infusion Metoclopramide HCl 10 mg 06/13/22 10:14 06/13/22 10:26 Metoclopramide Hcl 10 Mg/2 Ml Vial IVPUSH 06/13/22 10:15 10 mg ONCE ONE Administration Medical Decision Making Medical Decision Making [facility] Narrative: 26-year-old male here with several days of generalized abdominal pain and vomiting now with diarrhea today. On exam patient with no focal abdominal tenderness. Overall nontoxic. Taking Z ofran with continued symptoms. Feels dehydrated. Will obtain labs, UA, COVID screen. Patient will receive IV fluids, Benadryl, Reglan Differential Diagnosis Differential Diagnoses: The differential diagnosis associated with the presentat ion includes Gastroenteritis Low concern for acute abdominal pathology Lab Data [facility] Lab Attestation statement: I reviewed the patient's lab results. 06/13/22 09:32 06/13/22 09:32 Labs: Lab Results 06/13/22 06/13/22 06/13/22 Range/Units 09:32 10:10 14:38 WBC 11.5 H (4.8-10.8) X10*3/uL RBC 5.25 (4.60-5.80) X10*6/uL Hgb 15.9 (14.0-18.0) g/dl Hct 45.3 (42.0-52.0) % MCV 86.3 (80.0-98.0) fL MCH 30.3 (27.0-33.0) pg MCHC 35.1 (31.0-36.0) g/dl RDW 12.4 (11.0-16.0) % Plt Count 276 (160-400) X10*3/uL MPV 10.1 (9.4-12.4) fL Immature Gran % (Auto) 0.3 (0.0-0.4) % Neut % (Auto) 81.2 H (45-73) % Lymph % (Auto) 13.8 L (20-40) % Wilkinson % (Auto) 3.8 (2-11) % Eos % (Auto) 0.6 (0-4) % Baso % (Auto) 0.3 (0-2) % Lymph # (Auto) 1.6 (1.2-4.9) X10*3/uL Wilkinson # (Auto) 0.4 (0.1-1.2) X10*3/uL Eos # (Auto) 0.1 (0.0-0.4) X10*3/uL Baso # (Auto) 0.0 (0.0-0.2) X10*3/uL Abs Immat Gran (auto) 0.03 (0.00-0.03) X10*3/uL Absolute Neuts (auto) 9.3 H (2.0-8.3) x10*3/uL Absolute Nucleated RBC 0.000 (0.0-0.012) X10*3/uL Nucleated RBC % (auto) 0.0 (0.0-0.2) /100WBC Sodium 141 (135-145) mmol/L Potassium 4.2 (3.3-5.1) mmol/L Chloride 106 (96-108) mmol/L Carbon Dioxide 29 (22-29) mmol/L Anion Gap 10 L (12-20) BUN 13 (9-16) mg/dL Creatinine 1.05 (0.5-1.4) mg/dL Estim Creat Clear Calc 111.5 Estimated GFR > 60 Random Glucose 86 (60-115) mg/dL Calcium 9.3 (8.4-10.2) mg/dL Total Bilirubin 2.1 H (0.0-1.0) mg/dL Direct Bilirubin 0.5 (0.0-0.5) mg/dL AST 15 (5-37) U/L ALT 16 (0-40) U/L Alkaline Phosphatase 48 (39-117) U/L Total Protein 6.6 (6.5-8.0) g/dL Albumin 4.4 (3.5-5.0) g/dL Lipase 120 H (8-78) U/L COVID-19 (AMARI) Negative (Negative) COVID-19 Clin Com See Note Discharge Plan Discharge Clinical Impression: Nausea and vomiting Patient Disposition: Home, Self-Care Instructions: Acute Nausea and Vomiting (ED) Additional Instructions: Your lipase level is mildly elevated. We discussed that you might have some mild pancreatitis. We discussed that this point we do not feel like you need a repeat CT scan. However if you were to develop worsening pain, additional vomiting, fever you should return to the emergency room. Please abstain from alcohol, marijuana Start with clear liquids and do this for the next 24 hours and then advance her diet as tolerated Follow-up with gastroenterology Prescriptions: New promethazine 12.5 mg tablet 12.5 mg PO TID PRN (Reason: nausea and vomiting) Qty: 10 0RF Rx Instructions: 3 doses during day; last dose no later than 4 hr before bedtime No Action ondansetron 4 mg tablet,disintegrating 4 mg PO ONCE PRN (Reason: nausea and vomiting) Qty: 10 0RF diphenhydramine HCl [Benadryl] 25 mg capsule 25 mg PO TID PRN (Reason: nausea and vomiting) Qty: 14 0RF metoclopramide HCl [Reglan] 10 mg tablet 10 mg PO Q6H PRN (Reason: nausea and vomiting) Qty: 14 0RF loperamide [Anti-Diarrheal (loperamide)] 2 mg capsule 2 mg PO Q6H PRN (Reason: loose stool) Qty: 30 0RF ondansetron 4 mg tablet,disintegrating 4 mg PO Q8H PRN (Reason: nausea and vomiting) 3 Days Qty: 9 0RF omeprazole 40 mg capsule,delayed release(DR/EC) 40 mg PO DAILY 15 Days Qty: 15 0RF sucralfate 1 gram tablet 1 g PO BID 5 Days Qty: 10 0RF Referrals: Jose Mcclendon [Physician] - 1 week Stand Alone Forms: Work/School Release
[2022-06-13] MEDS: 0.9 % Sodium Chloride 1,000 ML 999 ML IV (10:23)
[2022-06-13] MEDS: diphenhydrAMINE HCL 50 MG/ML VIAL 25 MG IVPUSH (10:26)
[2022-06-13] MEDS: Metoclopramide HCl 10 MG/2 ML VIAL IVPUSH (10:26)
[2022-06-13 10:33] LABS: COVID-19 Test Negative (Negative); IDNOW Serial# 08D9AD1C
[2022-06-13 11:09] VITALS: BP 127/69; PULSE 63; RESP 19; TEMP 36.4; O2SAT 98
--- NOTE | 2022-06-13 12:04 | PC.NURSE ---
Pt reporting nausea and vomiting at home, however pt does report some improvement with fluids and medications given. Pt currently resting w. GF at bedside.
--- NOTE | 2022-06-13 14:43 | PC.NURSE ---
Called lab to check on pending BMP from 30 this am, reported they are still trying to find the tube new tube collected and sent down. PO trialing patient to assess n/v w/ PO intake
[2022-06-13 14:58] LABS: Alanine Aminotransferase 16 U/L (0-40); Albumin Level 4.4 g/dL (3.5-5.0); Alkaline Phosphatase 48 U/L (39-117); Anion Gap 10 (12-20); Aspartate Amino Transferase 15 U/L (5-37); Bilirubin Direct 0.5 mg/dL (0.0-0.5); Bilirubin Total 2.1 mg/dL (0.0-1.0); Blood Urea Nitrogen 13 mg/dL (9-16); Calcium 9.3 mg/dL (8.4-10.2); Carbon Dioxide 29 mmol/L (22-29); Chloride 106 mmol/L (96-108); Creatinine Clr Calc Pharmacy 111.5; Estimated Glomerular Filt Rate > 60; Glucose Random 86 mg/dL (60-115); Lipase 120 U/L (8-78); Potassium 4.2 mmol/L (3.3-5.1); Sodium 141 mmol/L (135-145); Total Protein 6.6 g/dL (6.5-8.0)
== END 2022-06-13 15:19 | disposition home or self-care (01) ==
PROVIDERS: Nurse Practitioner Family; Emergency Provider Student in an Organized Health Care Education/Training Program
DX: R11.2 Nausea with vomiting, unspecified (principal); Z79.899 Other long term (current) drug therapy; Z20.822 Contact with and (suspected) exposure to COVID-19
CPT/HCPCS: 36415; 80048; 80076; 83690; 85025; 87635; 96361; 96374; 96375; 99284; J1200; J2765

== ENCOUNTER 2022-06-29 17:12 | Emergency (ER) | payer BC, SELFPAY ==
[2022-06-29 17:19] VITALS: BP 163/93; PULSE 86; RESP 16; TEMP 36.8; O2SAT 97; BMI 28.0
--- NOTE | 2022-06-29 17:47 | ED_ITS ---
HPI - Wound/Laceration General Chief Complaint: Wound/Laceration Stated Complaint: finger lac Time Seen by Provider: 06/29/22 17:30 History of Present Illness HPI narrative: 26-year-old male with no significant past medical history presents emergency department after sustaining a 1 cm long by 1 mm deep laceration on his left index finger while cutting metal. He reports bleeding is controlled on arrival to the emergency department. He denies any paresthesias or difficulty with ra nge of motion of his index finger. He is unsure of his last tetanus shot. pertinent positives and negatives discussed in HPI. Related Data Previous Rx's Medication Instructions Recorded ondansetron 4 mg disintegrating 4 mg PO ONCE PRN nausea and 01/13/21 tablet vomiting #10 tabs omeprazole 40 mg capsule,delayed 40 mg PO DAILY 15 days #15 caps 03/20/22 release ondansetron 4 mg disintegrating 4 mg PO Q8H PRN nausea and 03/20/22 tablet vomiting 3 days #9 tabs sucralfate 1 gram tablet 1 g PO BID 5 days #10 tabs 03/20/22 diphenhydramine HCl 25 mg capsule 25 mg PO TID PRN nausea and 03/28/22 (Benadryl) vomiting #14 caps loperamide 2 mg capsule 2 mg PO Q6H PRN loose stool #30 03/28/22 (Anti-Diarrheal (loperamide)) caps metoclopramide HCl 10 mg tablet 10 mg PO Q6H PRN nausea and 03/28/22 (Reglan) vomiting #14 tabs promethazine 12.5 mg tablet 12.5 mg PO TID PRN nausea and 06/13/22 vomiting #10 tabs Allergies Allergy/AdvReac Type Severity Reaction Status Date / Time No Known Allergies Allergy Verified 06/13/22 09:28 Review of Systems Review of Systems: Yes all other systems are reviewed and are negative [facility] Past Medical History Attestation statement: The following information was validated with the patient. Source: old records reviewed and nursing notes reviewed Social History Social History Alcohol intake: current Alcohol type: beer Patient Tobacco Use Status: Current someday Tobacco user Advance Directives: No Advance Directives Information Provided: No Physical Exam Vital Signs: Vital Signs: Last Vital Signs Temp 98.3 F 06/29/22 17:19 Pulse 86 06/29/22 17:19 Resp 16 06/29/22 17:19 BP 163/93 H 06/29/22 17:19 Pulse Ox 97 06/29/22 17:19 O2 Del Method Room Air 06/29/22 17:19 BMI result Body Mass Index 28.0 Nursing notes and vital signs reviewed. GENERAL APPEARANCE: A&0 x 4, generally well appearing, no acute distress HENMT: Normal to inspection, atraumatic, face symmetrical. Normal external ears, nose, and oropharynx clear. EYE: PERRLA, EOM intact, structures appear normal NECK: Supple. No stiffness or restricted ROM. HEART: Normal rate and regular rhythm, normal S1/S2, no M/R/G LUNGS: LS CTA, moving air well. Able to speak in complete sentences. No crackles, wheezes, or rhonchi auscultated EXTREMITIES: Moving all extremities without difficulty. No cyanosis, clubbing, or edema. Normal capillary refill. NEUROLOGICAL: Alert and oriented, moving all 4 extremities with equal strength. CN not formally tested but appearing grossly intact. Observed to ambulate with normal gait. Cognition normal SKIN: Warm and dry without any lesions, rash, or visible sores PSYCH: Cooperative, normal affect, normal thought process Medications Administered Discontinued Medications Generic Name Dose Route Start Last Admin Trade Name Yousufq PRN Reason Stop Dose Admin Acetaminophen 650 mg 06/29/22 17:46 06/29/22 18:00 Acetaminophen 325 Mg Tablet PO 06/29/22 17:47 650 mg ONCE ONE Administration Diphtheria/Tetanus/Acell Pertussis 0.5 ml 06/29/22 17:46 06/29/22 18:01 Diphth,Pertus(Acell),Tet Adult 0.5 Ml Syringe IM 06/29/22 17:47 0.5 ml .ONCE ONE Administration Ibuprofen 600 mg 06/29/22 17:46 06/29/22 18:00 Ibuprofen 600 Mg Tablet PO 06/29/22 17:47 600 mg ONCE ONE Administration Medical Decision Making Medical Decision Making [facility] Narrative: 1745: Old records reviewed for previous imaging, lab studies, ECGs, or notes. Patient was assessed the emergency department. No acute distress or toxicity noted. Patient is A&O x4, LS CTA, PULLIAM x4 with good strength. Based on HPI and PE plan to place sutures for wound closure 1809: Wound cleansed with copious amounts of sterile water in addition to washed with soap and water. Patient declined ring block. 3 simple, interrupted sutures placed with good approximation of laceration. Patient tolerated without incident. Patient educated to keep wound clean and dry and to return in 7-10 days to have sutures removed. Patient is safe for discharge at this time with plan for [id number] Tylenol and/or NSAID such as ibuprofen or naproxen for fever/discomfort with dosing as per packaging. HPI, PE, diagnostics, and plan discussed with patient and family with no unanswered questions at this time. Strict return precautions given to return to the emergency department with new, worsening, or concerning emergent symptoms. Recommended to follow-up with there primary care provider in 24-48 hours for further treatment and management. Procedures Laceration Laceration 1: Site: hand ( left index finger) Side (If applicable): left Size (cm): 1 Description: linear Depth: simple, single layer Local Anesthetic: other anesthetic ( declined) Skin layer closed with: nylon Size (cm): 4-0 Number of sutures: 3 Technique: simple, interrupted Technique: simple, interrupted Discharge Plan Discharge Clinical Impression: Laceration of index finger Patient Disposition: Home, Self-Care Instructions: Care For Your Stitches (ED) Additional Instructions: Your seen in the emergency department for concerns of a laceration on your left index finger. Three sutures were placed any to be removed in 7-10 days. You can have the sutures removed here at this emergency department or at your primary care provider's office. You are safe for discharge at this time with plan for management of fever or discomfort with [id number] Tylenol and/or NSAID such as ibuprofen or naproxen with dosing as per packaging. Please return to the emergency department with new, worsening, or concerning emergent symptoms. Recommended to follow-up with your primary care provider in 24-48 hours for further treatment and management. Thank you for choosing [facility]. Prescriptions: No Action ondansetron 4 mg tablet,disintegrating 4 mg PO ONCE PRN (Reason: nausea and vomiting) Qty: 10 0RF diphenhydramine HCl [Benadryl] 25 mg capsule 25 mg PO TID PRN (Reason: nausea and vomiting) Qty: 14 0RF metoclopramide HCl [Reglan] 10 mg tablet 10 mg PO Q6H PRN (Reason: nausea and vomiting) Qty: 14 0RF loperamide [Anti-Diarrheal (loperamide)] 2 mg capsule 2 mg PO Q6H PRN (Reason: loose stool) Qty: 30 0RF promethazine 12.5 mg tablet 12.5 mg PO TID PRN (Reason: nausea and vomiting) Qty: 10 0RF Rx Instructions: 3 doses during day; last dose no later than 4 hr before bedtime ondansetron 4 mg tablet,disintegrating 4 mg PO Q8H PRN (Reason: nausea and vomiting) 3 Days Qty: 9 0RF omeprazole 40 mg capsule,delayed release(DR/EC) 40 mg PO DAILY 15 Days Qty: 15 0RF sucralfate 1 gram tablet 1 g PO BID 5 Days Qty: 10 0RF Referrals: [facility] [place] Family Medicine [Provider Group] [facility] Primary CareEzio [Provider Group] [facility] Primary CareRonald [Provider Group] Stand Alone Forms: Work/School Release Interventions: ED Discharge Assessment Last Done: 06/29/22 18:34 Discharge Date/Time: 06/29/22 18:34 Print Language: Lao
[2022-06-29] MEDS: Acetaminophen 325 MG TABLET 650 MG PO (18:00)
[2022-06-29] MEDS: Ibuprofen 600 MG TABLET PO (18:00)
[2022-06-29] MEDS: Diphth,Pertus(ACell),Tet Adult 0.5 ML SYRINGE IM (18:01)
== END 2022-06-29 18:34 | disposition home or self-care (01) ==
PROVIDERS: Emergency Provider Emergency Medicine
DX: S61.211A Laceration without foreign body of left index finger without damage to nail, initial encounter (principal); W26.9XXA Contact with unspecified sharp object(s), initial encounter; Y93.9 Activity, unspecified; Y92.9 Unspecified place or not applicable; Y99.9 Unspecified external cause status; Z79.899 Other long term (current) drug therapy; Z23 Encounter for immunization
CPT/HCPCS: 12001; 90471; 90715; 99283; 99284